=== PATIENT | female | born 1950 | race Caucasian/White ===

== ENCOUNTER → 2017-12-31 | Outpatient (CLI) | payer MEDICARE, OTHER ==
[~2017-12-31] MED LIST: CALGLU500; CYCL10 PO; ESTMED1.5T; HYDACE5; HYDACE5 PO; MULVITA; NAPR500 PO; OXYACE5T PO; RXCYCL10 PO
== END ==
LOC: LAB SHORT 13:42 → LAB EV 13:42
DX: N39.0 Urinary tract infection, site not specified (principal)
CPT/HCPCS: 87077; 87086; 87186

== ENCOUNTER → 2022-03-21 | Outpatient (CLI) | payer OTHER ==
[~2022-03-21] MED LIST changes: +ATOR20 PO; +Cleocin HCl150 MG PO; +SERT50 PO; +XELJANZ XR22 MG PO
[2022-03-21 17:40] LABS: BASOPHILS ABSOLUTE AUTO 0.06 K/mm3 (0.00-0.23); BASOPHILS PERCENT AUTO 0 % (0-2); EOSINOPHILS ABSOLUTE AUTO 0.16 K/mm3 (0.00-0.68); EOSINOPHILS PERCENT AUTO 1 % (0-6); Hematocrit 38.2 % (33.0-51.0); Hemoglobin 13.2 g/dL (11.5-16.0); IMMATURE GRAN ABSOLUTE AUTO 0.06 K/mm3 (0.00-0.10); IMMATURE GRAN PERCENT AUTO 0 % (0-1); LYMPHOCYTES ABSOLUTE AUTO 2.53 K/mm3 (0.84-5.20); LYMPHOCYTES PERCENT AUTO 19 % (21-46); MONOCYTES ABSOLUTE AUTO 0.88 K/mm3 (0.16-1.47); MONOCYTES PERCENT AUTO 7 % (4-13); Mean Corpuscular HGB 30.6 pg (26.0-34.0); Mean Corpuscular HGB Conc 34.6 g/dL (31.5-36.5); Mean Corpuscular Volume 89 fL (80-100); Mean Platelet Volume 9.7 fL (9.1-12.4); NEUTROPHILS ABSOLUTE AUTO 9.73 K/mm3 (1.96-9.15); NEUTROPHILS PERCENT AUTO 73 % (41-73); Platelet Count 254 K/mm3 (150-400); RDW Coefficient Variation 14.8 % (11.7-14.2); RDW Standard Deviation 48.3 fL (35.1-46.3); Red Blood Cell Count 4.31 M/mm3 (3.80-5.20); White Blood Cell Count 13.42 K/mm3 (4.00-11.30)
[2022-03-21 17:51] LABS: Albumin, Blood 3.9 g/dL (3.4-5.0); Albumin/Globulin Ratio 1.3 (0.8-1.8); Bilirubin, Total 0.4 mg/dL (0.1-1.0); Bun/Creatinine Ratio 29.1 (12.0-20.0); Creatinine, Blood 0.86 mg/dL (0.40-1.00); Globulin, Blood 3.1 g/dL (2.2-4.0); Potassium, Blood 3.8 mmol/L (3.5-5.5)
== END | disposition home or self-care (01) ==
LOC: LAB SHORT 17:33
PROVIDERS: Family Medicine
DX: L08.9 Local infection of the skin and subcutaneous tissue, unspecified (principal)
CPT/HCPCS: 80053; 85025; 85651; 86140

== ENCOUNTER 2022-03-22 09:19 | Emergency (ER) | payer OTHER ==
[~2022-03-22] VITALS: Ht 165.1 cm; Wt 59.0 kg
[~2022-03-22 09:19] MED LIST changes: -ATOR20 PO; -Cleocin HCl150 MG PO; -SERT50 PO; -XELJANZ XR22 MG PO
[2022-03-22 10:46] LABS: BASOPHILS ABSOLUTE AUTO 0.05 K/mm3 (0.00-0.23); BASOPHILS PERCENT AUTO 1 % (0-2); EOSINOPHILS ABSOLUTE AUTO 0.12 K/mm3 (0.00-0.68); EOSINOPHILS PERCENT AUTO 1 % (0-6); Hematocrit 40.9 % (33.0-51.0); Hemoglobin 13.5 g/dL (11.5-16.0); IMMATURE GRAN ABSOLUTE AUTO 0.03 K/mm3 (0.00-0.10); IMMATURE GRAN PERCENT AUTO 0 % (0-1); LYMPHOCYTES ABSOLUTE AUTO 1.71 K/mm3 (0.84-5.20); LYMPHOCYTES PERCENT AUTO 17 % (21-46); MONOCYTES ABSOLUTE AUTO 0.82 K/mm3 (0.16-1.47); MONOCYTES PERCENT AUTO 8 % (4-13); Mean Corpuscular HGB 29.9 pg (26.0-34.0); Mean Corpuscular Volume 91 fL (80-100); Mean Platelet Volume 9.4 fL (9.1-12.4); NEUTROPHILS PERCENT AUTO 73 % (41-73); Platelet Count 262 K/mm3 (150-400); RDW Coefficient Variation 14.7 % (11.7-14.2); RDW Standard Deviation 49.4 fL (35.1-46.3); Red Blood Cell Count 4.51 M/mm3 (3.80-5.20); White Blood Cell Count 10.03 K/mm3 (4.00-11.30)
[2022-03-22] MEDS ORDERED: XELJANZ XR22 MG PO (12:00)
[2022-03-22] MEDS ORDERED: ATOR20 PO (12:00)
[2022-03-22] MEDS ORDERED: SERT50 PO (12:00)
[2022-03-22] MEDS ORDERED: Cleocin HCl150 MG PO (12:01)
[2022-03-22 19:47] LABS: BODY FLUID RBC 0.027 M/mm3 (0-0)
[2022-03-22 19:55] LABS: RBC Count, Synovial Fluid 27000 /mm3 (0-0); WBC Count, Synovial Fluid 7933 /mm3 (0-180)
[2022-03-22 19:58] LABS: Body Fluid Crystals NEG (NEGATIVE)
[2022-03-22 20:35] LABS: Lymphs, Synovial Fluid 1 % (0-15); Monocytes/Macrophages, Synovia 4 % (0-65); Neutrophils, Synovial Fluid 95 % (0-24)
[2022-03-22 20:54] LABS: Appearance, Synovial Fluid Cloudy (Clear); Color, Synovial Fluid Red (None-P Yel)
== END 2022-03-22 20:00 | disposition left against medical advice (07) ==
LOC: ER 09:19
PROVIDERS: Student in an Organized Health Care Education/Training Program
DX: L03.115 Cellulitis of right lower limb (principal); M25.471 Effusion, right ankle; S91.031A Puncture wound without foreign body, right ankle, initial encounter; W26.8XXA Contact with other sharp object(s), not elsewhere classified, initial encounter; Z88.2 Allergy status to sulfonamides; Z79.899 Other long term (current) drug therapy
CPT/HCPCS: 20606; 36415; 83605; 85025; 85651; 86140; 89051; 89060

== ENCOUNTER 2023-06-18 09:11 | Day surgery (SDC) | payer OTHER ==
[~2023-06-18] VITALS: Ht 165.1 cm; Wt 56.9 kg
[~2023-06-18 09:11] MED LIST changes: +ATOR20 PO; +Cleocin HCl150 MG PO; +SERT50 PO; +XELJANZ XR22 MG PO
[2023-06-18] MEDS ORDERED: PROP10 (09:30)
[2023-06-18] MEDS ORDERED: ACTEMRA162 MG/0.1 (09:30)
[2023-06-18 12:02] VITALS: BP 114/78
== END 2023-06-18 11:50 | disposition home or self-care (01) ==
LOC: ORSCSDS 09:11
PROVIDERS: Internal Medicine Gastroenterology
PROC: 0DBH8ZX Excision of Cecum, Via Natural or Artificial Opening Endoscopic, Diagnostic (ICD-10-PCS; principal; 2023-06-18 10:30)
PROC: 0DBP8ZX Excision of Rectum, Via Natural or Artificial Opening Endoscopic, Diagnostic (ICD-10-PCS; principal; 2023-06-18 10:30)
PROC: 0DBK8ZX Excision of Ascending Colon, Via Natural or Artificial Opening Endoscopic, Diagnostic (ICD-10-PCS; principal; 2023-06-18 10:30)
DX: Z12.11 Encounter for screening for malignant neoplasm of colon (principal); Z80.0 Family history of malignant neoplasm of digestive organs; D12.0 Benign neoplasm of cecum; D12.2 Benign neoplasm of ascending colon; K62.1 Rectal polyp; K57.30 Diverticulosis of large intestine without perforation or abscess without bleeding; Z83.719 Family history of colon polyps, unspecified; F17.210 Nicotine dependence, cigarettes, uncomplicated; Z79.899 Other long term (current) drug therapy
CPT/HCPCS: 88305; J2704; J7120

== ENCOUNTER → 2024-06-23 | Outpatient (CLI) | payer OTHER ==
[~2024-06-23] MED LIST changes: +ACTEMRA162 MG/0.1; +PROP10
== END ==
LOC: LAB 07:33 → LAB SHORT 07:33
DX: L28.0 Lichen simplex chronicus (principal); L60.2 Onychogryphosis; B35.1 Tinea unguium
CPT/HCPCS: 88305; 88312; 88313

== ENCOUNTER 2025-05-20 11:07 | Day surgery (SDC) | payer OTHER ==
[~2025-05-20] VITALS: Ht 165.1 cm; Wt 57.2 kg
[~2025-05-20 11:07] MED LIST changes: +Balanced Salt Epinephrine Irrigation Solution 500 mL IR SCH; +Moxifloxacin HCL 0.5 MG/0.1 ML 0.4MLSYR LEFTEYE SCH; +Ondansetron 4 MG SoluTab MM PRN; +PHENYLEPHRINE\\TROPICAMIDE\\TETRACAINE OPHTHALMIC DILATING SOLN LEFTEYE PRN; +Povidone-Iodine 450 DROP/30 ML Solution LEFTEYE SCH; +Povidone-Iodine 450 DROP/30 ML Solution ONE; +Tetracaine HCl/Pf 0.5% Opth Soln 4 ml ONE
--- NOTE | 2025-05-20 12:14 | NUR ---
05/20/25 1214 Priscilla Ortiz PT REPORTS ANXIETY LEVEL 4/10 PRIOR TO ADMINISTRATION OF VALIUM 10MG PO @ 1207. PT'S HEART RATE SOUNDED SLIGHTLY IRREGULAR WHEN RN LB LISTENED TO IT. RHYTHM STRIP OBTAINED AND DOES SHOW SOME SLIGHT IRREGULARITIES. CONSULTED WITH DR OWENS AND HE ADVISED OKAY TO PROCEED WITH CATARACT SURGERY AND ADMINISTRATION OF VALIUM. TETRACAINE IN AT 1208. PLEDGETT IN AT 1209 CALL LIGHT IN PT'S HAND
[2025-05-20] MEDS ORDERED: FLUT.05NI (12:15)
--- NOTE | 2025-05-20 12:44 | NUR ---
05/20/25 1244 Natalia Boles VITALS AT 1244 BP: 122/89 P:70 O2: 99% WITH 9 LITERS OF BLOW BY OXYGEN
--- NOTE | 2025-05-20 12:59 | NUR ---
05/20/[address] AT BEDSIDE
[2025-05-20 13:00] VITALS: BP 113/75
== END 2025-05-20 13:17 | disposition home or self-care (01) ==
LOC: ORSCSDS 11:07
PROVIDERS: Student in an Organized Health Care Education/Training Program
PROC: 08RK3JZ Replacement of Left Lens with Synthetic Substitute, Percutaneous Approach (ICD-10-PCS; principal; 2025-05-20 13:00)
DX: H25.813 Combined forms of age-related cataract, bilateral (principal); E78.5 Hyperlipidemia, unspecified; Z79.899 Other long term (current) drug therapy; Z87.891 Personal history of nicotine dependence
CPT/HCPCS: A9270; V2632

== ENCOUNTER 2025-06-02 09:43 | Day surgery (SDC) | payer OTHER ==
[~2025-06-02] VITALS: Ht 165.1 cm; Wt 57.7 kg
[~2025-06-02 09:43] MED LIST changes: +FLUT.05NI; -Moxifloxacin HCL 0.5 MG/0.1 ML 0.4MLSYR LEFTEYE SCH; +Moxifloxacin HCL 0.5 MG/0.1 ML 0.4MLSYR RIGHTEYE SCH; -PHENYLEPHRINE\\TROPICAMIDE\\TETRACAINE OPHTHALMIC DILATING SOLN LEFTEYE PRN; +PHENYLEPHRINE\\TROPICAMIDE\\TETRACAINE OPHTHALMIC DILATING SOLN RIGHTEYE PRN; -Povidone-Iodine 450 DROP/30 ML Solution LEFTEYE SCH; +Povidone-Iodine 450 DROP/30 ML Solution RIGHTEYE SCH
--- NOTE | 2025-06-02 10:21 | NUR ---
06/02/25 1021 Pippa Davalos CALL LIGHT WITHIN REACH. EYE DROPS AROUND 1017. PT ON CONTINOUS PULSE OXIMETER FOR MONITORING.
[2025-06-02] MEDS ORDERED: Tetracaine HCl 0.5% Opth Soln 15 ml RIGHTEYE ONE (10:51)
--- NOTE | 2025-06-02 11:01 | NUR ---
06/02/25 1101 Katie Esparza 114/74 BP 51 HR 16 RR 100% O2
[2025-06-02 11:11] VITALS: BP 119/55
== END 2025-06-02 11:29 | disposition home or self-care (01) ==
LOC: ORSCSDS 09:43
PROVIDERS: Student in an Organized Health Care Education/Training Program
PROC: 08RJ3JZ Replacement of Right Lens with Synthetic Substitute, Percutaneous Approach (ICD-10-PCS; principal; 2025-06-02 11:30)
DX: H25.811 Combined forms of age-related cataract, right eye (principal); Z96.1 Presence of intraocular lens; E78.5 Hyperlipidemia, unspecified; Z79.899 Other long term (current) drug therapy; Z87.891 Personal history of nicotine dependence
CPT/HCPCS: A9270; V2632